=== PATIENT | female | born 1990 | race Caucasian/White ===

== ENCOUNTER 2016-05-07 07:10 | Emergency (ER) | payer MEDICAID ==
[~2016-05-07] VITALS: Ht 162.6 cm; Wt 56.0 kg
[2016-05-07 07:16] VITALS: Ht 162.6 cm; Wt 56.0 kg
[2016-05-07 07:34] LABS: URINE BLOOD (Dip) POC Negative (NEGATIVE)
--- NOTE | 2016-05-07 07:37 | ERD ---
ER Documentation Chief Complaint Date/Time DATE: 05/07/16 TIME: 07:35 Chief Complaint lower abd pain x 3 days ; nauseous; hurts when she's holding her urination HPI 25-year-old female comes in with lower abdominal pain for the past 3 days, nausea and pressure like pain. Patient states that after she finishes urinating she feels a burning sensation. She describes the pain as being epigastric and then it slowly migrated to the lower abdomen over the last 3 days. No vomiting or diarrhea. Denies fevers or chills. ROS All systems reviewed and are negative except as per history of present illness. Medications Home Meds Active Scripts Naproxen* (Naprosyn*) 500 Mg Tablet, 500 MG PO BID Y for PAIN AND/OR INFLAMMATION, #30 TAB Prov:GAURAV SAMAYOA PA-C 05/07/16 Allergies Allergies: Coded Allergies: Penicillins (Verified Allergy, Unknown, 05/07/16) PMhx/Soc Medical and Surgical Hx: pt denies Medical Hx, pt denies Surgical Hx Hx Alcohol Use: No Hx Substance Use: No Hx Tobacco Use: No Physical Exam Vitals Vital Signs Date Time Temp Pulse Resp B/P Pulse Ox O2 Delivery O2 Flow Rate FiO2 05/07/16 07:16 98.4 72 19 110/63 100 Physical Exam General: Well-developed, well-nourished. The patient appears in no acute distress. HEENT: Head is normocephalic, atraumatic. No scleral icterus. Neck: Supple. Nontender. Lungs: Clear to auscultation. Normal air movement. Heart: Regular rate and rhythm. S1 and S2 are normal. No murmurs, gallops, or rubs. Abdomen: Soft, tender in the suprapubic region and right lower quadrant nondistended. Bowel sounds are normoactive. Negative Blanco sign. Extremities: No clubbing or cyanosis. Normal pulses. Moving extremities x 4. No weakness. Neurologic: Alert and oriented 3. No focal deficits. Skin: Normal turgor. No rash or lesions. Result Diagram: 05/07/16 0743 05/07/16 0743 Results 24 hrs Laboratory Tests Test 05/07/16 07:35 05/07/16 07:43 Bedside Urine Blood Negative Bedside Urine Glucose (UA) Negative Bedside Urine Ketones (LAB) Trace Bedside Urine Leukocyte Esterase (L Negative Bedside Urine Nitrite (LAB) Negative Bedside Urine Protein (LAB) 1+ Bedside Urine pH (LAB) 5.5 Alanine Aminotransferase (ALT/SGPT) 41IU/L Albumin 4.4g/dl Albumin/Globulin Ratio 1.33 Alkaline Phosphatase 79IU/L Anion Gap 15 Aspartate Amino Transf (AST/SGOT) 43IU/L Basophils # 0.010^3/ul Basophils % 0.7% Blood Morphology Comment Blood Urea Nitrogen 13mg/dl Calcium Level 9.5mg/dl Carbon Dioxide Level 29mmol/L Chloride Level 103mmol/L Creatinine 0.69mg/dl Direct Bilirubin 0.00mg/dl Eosinophils # 0.110^3/ul Eosinophils % 1.2% Globulin 3.30g/dl Glucose Level 70mg/dl Hematocrit 40.6% Hemoglobin 13.5g/dl Indirect Bilirubin 0.5mg/dl Lipase 108U/L Lymphocytes # 2.310^3/ul Lymphocytes % 33.4% Mean Corpuscular Hemoglobin 28.7pg Mean Corpuscular Hemoglobin Concent 33.3g/dl Mean Corpuscular Volume 86.3fl Mean Platelet Volume 8.2fl Monocytes # 0.510^3/ul Monocytes % 7.8% Neutrophils # 4.010^3/ul Neutrophils % 56.9% Nucleated Red Blood Cells # 0.010^3/ul Nucleated Red Blood Cells % 0.0/100WBC Platelet Count 57087^3/UL Potassium Level 3.6mmol/L Red Blood Count 4.7110^6/ul Red Cell Distribution Width 14.3% Sodium Level 143mmol/L Total Bilirubin 0.5mg/dl Total Protein 7.7g/dl White Blood Count 6.910^3/ul Current Medications Medications (Trade) Dose Ordered Sig/Ephraim Route PRN Reason Start Time Stop Time Status Last Admin Dose Admin Ibuprofen (Motrin) 600 mg ONCE ONCE PO 05/07/16 09:00 05/07/16 09:01 DC 05/07/16 08:52 PROCEDURE: US Pelvis. CLINICAL INDICATION: Follow-up left adnexal cyst seen on CT. TECHNIQUE: Multiple sonographic images of the pelvis were obtained utilizing a transabdominal and endovaginal technique. The images were reviewed on a PACS workstation. COMPARISON: CT abdomen pelvis from earlier the same date. FINDINGS: The uterus is visualized and measures 9.5 x 4.5 x 4.9 cm. The endometrial echo complex is normal and measures 11.1 mm. There is no evidence for free fluid. The right ovary has a normal echotexture and measures 3.3 x 2.6 x 2.4 cm. The left ovary has a normal echotexture and measures 3.7 x 2.0 x 2.9 cm. There is an oval-shaped cyst in the left ovary measuring 1.7 x 0.6 cm. Normal Doppler flow to both ovaries. No adnexal masses are noted. IMPRESSION: 1. Unremarkable appearance to the uterus. 2. 1.7 x 0.6 cm cyst in the left ovary. 3. No adnexal mass or fluid collection identified. RPTAT: [facility] Physician Tomasa Date Time Electronically viewed and signed by Physician Tomasa on 05/07/2016 09: 53 JH/ PROCEDURE: CT abdomen and pelvis without IV contrast CLINICAL INDICATION: Lower abdominal pain TECHNIQUE: Axial images were obtained through the abdomen and pelvis without IV contrast. Coronal and sagittal reconstructions were obtained. Automated exposure control was utilized. DLP = 347.2 mGy-cm. CTDiol= 6.2 mGy. COMPARISON: none available FINDINGS: The visualized lower lungs are clear. Heart size is within normal limits. The liver, gallbladder, pancreas, spleen and adrenals are unremarkable. 4 mm nonobstructing stone is identified in the midportion of the left kidney. An additional 2 mm nonobstructing stone is seen in the midportion of the left kidney. No obstructive uropathy is seen. The bladder is filled with a small amount of urine. The uterus has a grossly unremarkable noncontrast appearance. 3.2 cm cyst is noted in the left adnexa. Moderate to large amount of formed stool is noted in the colon. The appendix is normal. No dilated loops of small bowel are observed. The stomach and duodenum are unremarkable. Trace free fluid is noted in the cul-de-sac. No intra-abdominal or pelvic lymphadenopathy is observed. The arterial vasculature demonstrates a normal appearance. Osseous structures are intact and normal-appearing. Subcutaneous and muscular soft tissues surrounding the abdomen and pelvis are unremarkable. IMPRESSION: Limited evaluation for intra-abdominal inflammatory processes without IV contrast. If there is clinical concern for a intra-abdominal inflammatory process repeat exam with IV contrast is recommended. Nonobstructing left renal stones. 3.2 cm cyst in the left adnexa. This could reflect an ovarian cyst. Further characterization is needed ultrasound is recommended. Trace free fluid in the cul-de-sac. This could be physiologic. Moderate to large amount of formed stool in the colon. Finding may reflect constipation. RPTAT: AA .Jayden Downing MD, MD Date Time Electronically viewed and signed by .Jayden Downing MD, MD on 05/07/2016 08:21 .P/ Procedures/MDM 25-year-old female comes in with lower abdominal pain, patient's workup shows that she has a left ovarian cyst, there is no torsion, TOA, evidence of a UTI or pyelonephritis. Additionally she did have some pain that radiates to her right lower quadrant, therefore a CT abdomen and pelvis was ordered and there is no evidence of appendicitis. She will be given Naprosyn to take, she is to follow-up with her primary care physician outpatient. Departure Diagnosis: Primary Impression: Ovarian cyst Condition: GAURAV Garcia PA-C May 07, 2016 07:37
[2016-05-07 07:58] LABS: BASOPHILS % 0.7 % (0.0-2.0); EOSINOPHILS # 0.1 10^3/ul (0.0-0.5); EOSINOPHILS % 1.2 % (0.0-7.0); HEMATOCRIT 40.6 % (37.0-47.0); HEMOGLOBIN 13.5 g/dl (12.0-16.0); LYMPHOCYTES # 2.3 10^3/ul (0.8-2.9); LYMPHOCYTES % 33.4 % (15.0-51.0); MEAN CORPUSCULAR HEMOGLOBIN 28.7 pg (29.0-33.0); MEAN CORPUSCULAR HGB CONC 33.3 g/dl (32.0-37.0); MEAN CORPUSCULAR VOLUME 86.3 fl (82.0-101.0); MEAN PLATELET VOLUME 8.2 fl (7.4-10.4); MONOCYTE # 0.5 10^3/ul (0.3-0.9); MONOCYTES % 7.8 % (0.0-11.0); NEUTROPHILS % 56.9 % (39.0-77.0); PLATELET COUNT 246 10^3/UL (140-440); RED BLOOD COUNT 4.71 10^6/ul (4.20-5.40); RED CELL DISTRIBUTION WIDTH 14.3 % (11.5-14.5); UNCORRECTED WBC 6.9 10^3/ul (4.8-10.8); WHITE BLOOD COUNT 6.9 10^3/ul (4.8-10.8)
[2016-05-07 08:06] LABS: ALBUMIN 4.4 g/dl (3.3-4.9); CONDITION 1
[2016-05-07 08:07] LABS: POTASSIUM 3.6 mmol/L (3.5-5.1)
[2016-05-07 08:09] LABS: ALBUMIN/GLOBULIN RATIO 1.33; BILIRUBIN,INDIRECT 0.5 mg/dl (0-1.1); BILIRUBIN,TOTAL 0.5 mg/dl (0.2-1.3); CALCIUM 9.5 mg/dl (8.4-10.2); CREATININE 0.69 mg/dl (0.44-1.00); TOTAL PROTEIN 7.7 g/dl (6.1-8.1)
--- NOTE | 2016-05-07 08:21 | RADRPT ---
PROCEDURE: CT abdomen and pelvis without IV contrast CLINICAL INDICATION: Lower abdominal pain TECHNIQUE: Axial images were obtained through the abdomen and pelvis without IV contrast. Coronal and sagittal reconstructions were obtained. Automated exposure control was utilized. DLP = 347.2 m Gy-cm. CTDiol= 6.2 mGy. COMPARISON: none available FINDINGS: The visualized lower lungs are clear. Heart size is within normal limits. The liver, gallbladder, pancreas, spleen and adrenals are unremarkable. 4 mm nonobstructing stone is identified in the midportion of the left kidney. An additional 2 mm no nobstructing stone is seen in the midportion of the left kidney. No obstructive uropathy is seen. T he bladder is filled with a small amount of urine. The uterus has a grossly unremarkable noncontrast appearance. 3.2 cm cyst is noted in the left adne xa. Moderate to large amount of formed stool is noted in the colon. The appendix is normal. No dilated loops of small bowel are observed. The stomach and duodenum are unremarkable. Trace free fluid is noted in the cul-de-sac. No intra-abdominal or pelvic lymphadenopathy is observ ed. The arterial vasculature demonstrates a normal appearance. Osseous structures are intact and normal-appearing. Subcutaneous and muscular soft tissues surround ing the abdomen and pelvis are unremarkable. IMPRESSION: Limited evaluation for intra-abdominal inflammatory processes without IV contrast. If there is clin ical concern for a intra-abdominal inflammatory process repeat exam with IV contrast is recommended. Nonobstructing left renal stones. 3.2 cm cyst in the left adnexa. This could reflect an ovarian cyst. Further characterization is ne eded ultrasound is recommended. Trace free fluid in the cul-de-sac. This could be physiologic. Moderate to large amount of formed stool in the colon. Finding may reflect constipation. RPTAT: AA .Jayden Downing MD, MD Date Time Electronically viewed and signed by .Jayden Downing MD, MD on 05/07/2016 08:21 .P/
[2016-05-07] MEDS ORDERED: IBUPROFEN 600 MG TAB PO ONE (09:00)
--- NOTE | 2016-05-07 09:53 | RADRPT ---
PROCEDURE: US Pelvis. CLINICAL INDICATION: Follow-up left adnexal cyst seen on CT. TECHNIQUE: Multiple sonographic images of the pelvis were obtained utilizing a transabdominal and endovaginal technique. The images were reviewed on a PACS workstation. COMPARISON: CT abdomen pelvis from earlier the same date. FINDINGS: The uterus is visualized and measures 9.5 x 4.5 x 4.9 cm. The endometrial echo complex is normal and measures 11.1 mm. There is no evidence for free fluid. The right ovary has a normal echotexture and measures 3.3 x 2.6 x 2.4 cm. The left ovary has a normal echotexture and measures 3.7 x 2.0 x 2.9 cm. There is an oval-shaped cyst in the left ovary measuring 1.7 x 0.6 cm. Normal Doppler flow to b oth ovaries. No adnexal masses are noted. IMPRESSION: 1. Unremarkable appearance to the uterus. 2. 1.7 x 0.6 cm cyst in the left ovary. 3. No adnexal mass or fluid collection identified. RPTAT: [facility] Physician Tomasa Date Time Electronically viewed and signed by Physician Tomasa on 05/07/2016 09:53 /
[2016-05-07] MEDS ORDERED: NAPR-260 PO (09:58)
[2016-05-07 10:03] VITALS: BP 116/67; PULSE 78; RESP 16; TEMP 98.2
== END 2016-05-07 10:04 | disposition home or self-care (01) ==
LOC: FTE 07:10
DX: N83.202 Unspecified ovarian cyst, left side (principal)
CPT/HCPCS: 36415; 74176; 76830; 76856; 80053; 81003; 83690; 85025; Z7502; Z7610